=== PATIENT | female | born 1990 | race Caucasian/White ===

== ENCOUNTER 2018-09-05 23:53 | Outpatient (CLI) | payer MEDICAID | END 2018-09-05 23:54 | disposition critical access hospital (66) | LOC: EMS 23:53 | PROVIDERS: ATTEND Surgery | DX: M54.5 Low back pain (principal); R53.1 Weakness | CPT/HCPCS: A0425; A0429; A0999 ==

== ENCOUNTER 2018-09-05 23:55 | Emergency (ER) | payer MEDICAID ==
[2018-09-06] MEDS ORDERED: LORazepam 2 MG/ML VIAL ONE (00:53)
[2018-09-06 01:42] LABS: BASOPHILS # (AUTO) 0.1 10^3/uL (0.0-0.1); BASOPHILS % (AUTO) 0.9 %; EOSINOPHILS # (AUTO) 0.3 10^3/uL (0.0-0.7); EOSINOPHILS % (AUTO) 2.7 %; HGB - HEMOGLOBIN 12.4 g/dL (12.0-16.0); LYMPHOCYTES # (AUTO) 1.8 10^3/uL (1.5-3.5); LYMPHOCYTES % (AUTO) 17.8 %; MEAN CORPUSCULAR HEMOGLOBIN 26.3 pg (27.0-31.0); MEAN CORPUSCULAR HGB CONC 32.8 g/dL (32.0-36.0); MEAN CORPUSCULAR VOLUME 80.3 fL (81.0-99.0); MEAN PLATELET VOLUME 8.8 fL (7.9-10.8); MONOCYTES # (AUTO) 0.4 10^3/uL (0.0-1.0); MONOCYTES % (AUTO) 4.5 %; NEUTROPHILS # (AUTO) 7.3 10^3/uL (1.5-6.6); NEUTROPHILS % (AUTO) 74.1 %; PLT - PLATELET COUNT 208 10^3/uL (130-450); RED CELL DISTRIBUTION WIDTH 16.4 % (12.0-15.0); WHITE BLOOD COUNT 9.9 x10^3/uL (4.8-10.8)
[2018-09-06 01:50] LABS: ALBUMIN 3.6 g/dL (3.2-5.5); ALBUMIN/GLOBULIN RATIO 0.8 (1.0-2.2); BILIRUBIN,TOTAL 0.5 mg/dL (0.2-1.0); CREATININE 0.9 mg/dL (0.4-1.0); TOTAL PROTEIN 8.1 g/dL (6.7-8.2)
[2018-09-06 01:58] LABS: BILIRUBIN,URINE NEGATIVE (NEGATIVE); GLUCOSE, URINE (UA) NEGATIVE (NEGATIVE); KETONES,URINE (UA) NEGATIVE (NEGATIVE); LEUKOCYTE ESTERASE, URINE TRACE (NEGATIVE); NITRITE,URINE NEGATIVE (NEGATIVE); OCCULT BLOOD,URINE NEGATIVE (NEGATIVE); PH,URINE 5.5 PH (5.0-7.5); PROTEIN,URINE NEGATIVE (NEGATIVE); UROBILINOGEN,URINE 0.2 (NORMAL) E.U./dL (NORMAL)
[2018-09-06 01:59] LABS: CLARITY,URINE CLEAR (CLEAR)
[2018-09-06 02:04] LABS: BACTERIA,URINE Rare /HPF (None Seen); MUCUS,URINE Marked Strands; RBC,URINE None Seen /HPF (0-5); SQUAMOUS EPITHELIAL CELL,UR MANY Squamous (<= Few)
[2018-09-06] MEDS ORDERED: POTASSIUM CHLORIDE 20 MEQ TABLET PO STA (02:19)
--- NOTE | 2018-09-06 02:41 | ED Physician Documentation ---
History of Present Illness - Stated complaint Stated Complaint: GLF/ HIP PX - Chief complaint Chief Complaint: General - History obtained from History obtained from: Patient, Family, EMS - History of Present Illness Timing: Today - Additonal information Additional information: 28 y/o female with developmental delay was on her way into her cousins apartment when she went to step into the apartment she fell backward and her family was not able to help her up. She is bariatric and medics called the fire department to assist but the patient was able to get to the gurney and to stand and pivot. She is complaining of pain in her back that is similar to the pain she always has and was present today in the car on the way to the cousins. The patient and her mother and father are moving out of their home of 11 years and are having to stay with the cousin until the 09 of September. The patient herself answers "I don't know" to most questions. The cousin is able to provide further history and indicates that the patient does not usually leave the house more than once per month, does not have a primary care doctor since moving to [place] and is not on any medications. She has been to an urgent care for ear infection as the extent of her interaction with the medical community. She has chronic pain in her right side on her back and hip area. This is not different from usual according to the patient. Review of Systems Unable to obtain: Confused Constitutional: denies: Fever Eyes: denies: Decreased vision Ears: denies: Ear pain Nose: denies: Rhinorrhea / runny nose, Congestion Throat: denies: Sore throat Cardiac: denies: Chest pain / pressure, Palpitations Respiratory: denies: Dyspnea, Cough GI: reports: Vomiting (last night when she ate too much for her birthday) : denies: Dysuria, Frequency Skin: denies: Rash Musculoskeletal: reports: Back pain. denies: Neck pain, Extremity pain Neurologic: denies: Generalized weakness, Focal weakness, Numbness PD PAST MEDICAL HISTORY - Past Medical History Cardiovascular: None Respiratory: None Neuro: Headaches Endocrine/Autoimmune: None GI: GERD NATIONAL ACCOUNTS SALES: None : None HEENT: None Psych: ADD/ADHD Musculoskeletal: Chronic back pain Derm: None Other Past Medical History: learning disability; oppositional defiant disorder, borderline autism - Past Surgical History Past Surgical History: No - Present Medications Home Medications: Ambulatory Orders Medication Instructions Recorded Confirmed Acetaminophen 650 mg PO PRN 09/06/18 Ibuprofen [Ibuprofen Ib] 600 mg PO PRN 09/06/18 - Allergies Allergies/Adverse Reactions: Allergies Allergy/AdvReac Type Severity Reaction Status Date / Time erythromycin base Allergy Hives Verified 09/06/18 00:31 - Social History Does the pt smoke?: No Smoking Status: Never smoker Does the pt drink ETOH?: No Does the pt have substance abuse?: No - Immunizations Immunizations are current?: No PD ED PE NORMAL - Vitals Vital signs reviewed: Yes (normal ) - General General: No acute distress, Well developed/nourished, Other (large female with short cropped hair and missing front teeth is pleasant but not able to help much with the history. She smiles and laughs a lot. ) - HEENT HEENT: Atraumatic, PERRL, EOMI - Neck Neck: Supple, no meningeal sign, No bony TTP - Cardiac Cardiac: RRR, No murmur - Respiratory Respiratory: No respiratory distress, Clear bilaterally - Abdomen Abdomen: Normal bowel sounds, Soft, Non tender, Non distended, No organomegaly, Other (obese BMI 56.6) - Back Back: No CVA TTP, No spinal TTP, Other (There is some mild tenderness to the back at the level of the illiac crest and no tenderness over the trochanter. ) - Derm Derm: Normal color, Warm and dry, No rash - Extremities Extremities: No deformity, No edema - Neuro Neuro: talent buyer 2-12 intact, No motor deficit, No sensory deficit, Normal speech Eye Opening: Spontaneous Motor: Obeys Commands Verbal: Confused GCS Score: 14 - Psych Psych: Normal mood, Normal affect Results - Vitals Vitals: Vital Signs - 24 hr 09/05/18 09/06/18 23:57 00:13 Temperature 35.5 C L Heart Rate 90 Respiratory 18 Rate Blood Pressure 132/80 H O2 Saturation 100 Oxygen O2 Source Room air - Labs Labs: Laboratory Tests 09/06/18 09/06/18 09/06/18 01:30 01:30 01:55 WBC 9.9 RBC 4.70 Hgb 12.4 Hct 37.7 MCV 80.3 L MCH 26.3 L MCHC 32.8 RDW 16.4 H Plt Count 208 MPV 8.8 Neut # (Auto) 7.3 H Lymph # (Auto) 1.8 [place] # (Auto) 0.4 Eos # (Auto) 0.3 Baso # (Auto) 0.1 Absolute Nucleated RBC 0.00 Nucleated RBC % 0.0 Sodium 140 Potassium 3.4 L Chloride 102 Carbon Dioxide 27 Anion Gap 11.0 BUN 11 Creatinine 0.9 Estimated GFR (MDRD) 75 L Glucose 117 H Calcium 9.0 Total Bilirubin 0.5 AST 33 ALT 39 Alkaline Phosphatase 120 Total Protein 8.1 Albumin 3.6 Globulin 4.5 H Albumin/Globulin Ratio 0.8 L Lipase 41 Urine Color YELLOW Urine Clarity CLEAR Urine pH 5.5 Ur Specific [place] 1.025 Urine Protein NEGATIVE Urine Glucose (UA) NEGATIVE Urine Ketones NEGATIVE Urine Occult Blood NEGATIVE Urine Nitrite NEGATIVE Urine Bilirubin NEGATIVE Urine Urobilinogen 0.2 (NORMAL) Ur Leukocyte Esterase TRACE H Urine RBC None Seen Urine WBC 4-5 Ur Squamous Epith Cells MANY Squamous H Urine Bacteria Rare Urine Mucus Marked Strands Ur Microscopic Review INDICATED Urine Culture Comments NOT INDICATED PD MEDICAL DECISION MAKING - ED course Complexity details: considered differential, d/w patient, d/w family ED course: 28-year-old female who is normally a shot in and is having to move apparently does not want to go into the cousin's house. I am not finding that she is injured in any way today we did do some routine baseline blood work and urinalysis which were unremarkable. He she had a potassium of 3.4 and was given 20 mEq of potassium chloride. The patient's mother has had a recent mastectomy and has not as much help as she normally would be. The cousin indicates that they are working on a new residence and the patient has her mother father and aunt as well as cousin helping with this and they expect to be into a new home in less than a weeks time. Departure - Departure Disposition: 01 Home, Self Care Clinical Impression: Hypokalemia, Fall from ground level Condition: Stable Instructions: ED Potassium Deficiency, ED Mechanical Fall, ED Prevention Fall Follow-Up: [facility] [Provider Group]
[2018-09-06 02:59] VITALS: BP 149/99
== END 2018-09-06 03:08 | disposition home or self-care (01) ==
LOC: ED 23:55
DX: E87.6 Hypokalemia (principal); M54.9 Dorsalgia, unspecified; M25.551 Pain in right hip; G89.29 Other chronic pain; W18.30XA Fall on same level, unspecified, initial encounter; Y92.039 Unspecified place in apartment as the place of occurrence of the external cause; E66.9 Obesity, unspecified; Z68.43 Body mass index [BMI] 50.0-59.9, adult; F81.9 Developmental disorder of scholastic skills, unspecified
CPT/HCPCS: 36415; 80053; 81001; 83690; 85025; 99283; A9270; 81003; 87086

== ENCOUNTER 2018-10-06 16:24 | Outpatient (CLI) | payer MEDICAID | END 2018-10-06 16:45 | disposition critical access hospital (66) | LOC: EMS 16:24 | PROVIDERS: ATTEND Surgery | DX: R51 Headache (principal); W19.XXXA Unspecified fall, initial encounter; Z91.81 History of falling; Y92.038 Other place in apartment as the place of occurrence of the external cause | CPT/HCPCS: A0425; A0429; A0999 ==

== ENCOUNTER 2018-10-06 16:50 | Emergency (ER) | payer MEDICAID ==
[2018-10-06] MEDS ORDERED: BACITRACIN OINT TOP STA (16:51)
[2018-10-06 16:52] VITALS: BP 128/74
[2018-10-06] MEDS ORDERED: ACETAMINOPHEN 325 MG TABLET PO STA (16:55)
--- NOTE | 2018-10-06 16:55 | ED Physician Documentation ---
History of Present Illness - Stated complaint Stated Complaint: FALL - Chief complaint Chief Complaint: Trauma Hd/Nk - History obtained from History obtained from: Patient, Family, EMS - History of Present Illness Timing: Today Pain level max: 4 Pain level now: 3 Improved by: rest Worsened by: movement - Additonal information Additional information: 28-year-old female, developmentally delayed, was walking up the steps when she tripped and fell, struck her forehead and lip on the ground. Sustained abrasions. No loss of consciousness. No vomiting. No headache. No mouth pain. No neck or back pain. Has chronic right-sided pain that is worse with movement. Review of Systems Constitutional: denies: Fever, Chills Ears: denies: Ear pain Nose: denies: Rhinorrhea / runny nose, Congestion Throat: denies: Sore throat GI: denies: Vomiting, Diarrhea Skin: denies: Rash Musculoskeletal: denies: Neck pain, Back pain Neurologic: denies: Focal weakness, Numbness, Confused, Altered mental status, LOC PD PAST MEDICAL HISTORY - Past Medical History Cardiovascular: None Respiratory: None Neuro: Headaches Endocrine/Autoimmune: None GI: GERD SCHOOL COORDINATOR: None : None HEENT: None Psych: ADD/ADHD Musculoskeletal: Chronic back pain Derm: None - Past Surgical History Past Surgical History: No - Allergies Allergies/Adverse Reactions: Allergies Allergy/AdvReac Type Severity Reaction Status Date / Time erythromycin base Allergy Hives Verified 10/06/18 16:51 - Social History Does the pt smoke?: No Smoking Status: Never smoker Does the pt drink ETOH?: No Does the pt have substance abuse?: No - Immunizations Immunizations are current?: No PD ED PE NORMAL - Vitals Vital signs reviewed: Yes - General General: Alert and oriented X 3, No acute distress - HEENT HEENT: PERRL, EOMI, Moist mucous membranes, Other (Abrasions to the forehead, upper lip and left side of the face. No significant lacerations. No intraoral lacerations. No tongue injury. No dental injury. No bony tenderness over the face.) - Neck Neck: Supple, no meningeal sign, No bony TTP, Other (Full range of motion without pain) - Cardiac Cardiac: RRR, Strong equal pulses - Respiratory Respiratory: No respiratory distress, Clear bilaterally - Abdomen Abdomen: Soft, Non tender, Non distended - Back Back: No spinal TTP - Derm Derm: Warm and dry - Extremities Extremities: Normal ROM s pain, Other (Ambulating well in the emergency department) - Neuro Neuro: Alert and oriented X 3, No motor deficit, No sensory deficit Eye Opening: Spontaneous Motor: Obeys Commands Verbal: Oriented GCS Score: 15 - Psych Psych: Normal mood, Normal affect Results - Vitals Vitals: Vital Signs - 24 hr 10/06/18 16:49 Temperature 37.1 C Heart Rate 74 Respiratory 14 Rate Blood Pressure 128/74 O2 Saturation 100 Oxygen O2 Source Room air PD MEDICAL DECISION MAKING - ED course Complexity details: re-evaluated patient, considered differential, d/w patient, d/w family ED course: Patient with facial abrasions status post fall. No evidence of facial bone fracture that require repair. No extraocular muscle entrapment. No ocular injury. No orbital injury. No evidence of intracranial hemorrhage or skull fracture that require intervention. Will hold off on imaging at this time. Speaking freely, eating and drinking without difficulty. Wounds were cleansed and bandaged. No lacerations to repair. Patient and family counseled regarding signs and symptoms for which I believe and urgent re-evaluation would be necessary. Patient with good understanding of and agreement to plan and is comfortable going home at this time This document was made in part using voice recognition software. While efforts are made to proofread this document, sound alike and grammatical errors may occur. Departure - Departure Disposition: 01 Home, Self Care Clinical Impression: Facial abrasion Qualifiers: Encounter type: initial encounter Qualified Code(s): S00.81XA - Abrasion of other part of head, initial encounter Head injury Qualifiers: Encounter type: initial encounter Qualified Code(s): S09.90XA - Unspecified injury of head, initial encounter Condition: Good Instructions: ED Abrasion, ED Head Injury Closed Follow-Up: your,doctor in 1 week [Other] Comments: You can use Motrin or Tylenol as needed for pain. Return if you worsen. Follow-up with your doctor for further care. Keep the wounds clean. You can use antibiotic ointment at home. Discharge Date/Time: 10/06/18 18:07
== END 2018-10-06 18:07 | disposition home or self-care (01) ==
LOC: ED 16:50
DX: S00.81XA Abrasion of other part of head, initial encounter (principal); S00.511A Abrasion of lip, initial encounter; S09.90XA Unspecified injury of head, initial encounter; W10.9XXA Fall (on) (from) unspecified stairs and steps, initial encounter; Y93.01 Activity, walking, marching and hiking
CPT/HCPCS: 99282; 99283; A9270

== ENCOUNTER 2019-05-24 14:04 | Emergency (ER) | payer MEDICAID ==
[2019-05-24 14:10] VITALS: BP 140/92
== END 2019-05-24 16:30 | disposition left against medical advice (07) ==
LOC: ED 14:04
DX: Z53.21 Procedure and treatment not carried out due to patient leaving prior to being seen by health care provider (principal)

== ENCOUNTER 2021-10-02 14:32 | Inpatient (IN) | payer MEDICARE, MEDICAID ==
[2021-10-02] MEDS ORDERED: LIDOCAINE VISCOUS 2% 15 ML UDC MM STA (15:31)
[2021-10-02] MEDS ORDERED: MAG HYDROX/AL HYDROX/SIMETH 30 ML UDC PO STA (15:31)
--- NOTE | 2021-10-02 15:34 | ED Physician Documentation ---
PD HPI ABD PAIN - Stated complaint Stated Complaint: ABDOMINAL PX - Chief complaint Chief Complaint: Abd Pain - History obtained from History obtained from: Patient, Family - Additional information Additional information: 31-year-old woman with history of developmental delay Presents with her sister for evaluation of 3 days of abdominal pain. Sharp upper abdominal pain that is worse with eating. She vomited once with it. She is been constipated. They tried omeprazole but only once and ibuprofen which were ineffective. Tums does help a bit. Review of Systems Constitutional: denies: Fever, Chills Cardiac: reports: Reviewed and negative Respiratory: reports: Reviewed and negative PD PAST MEDICAL HISTORY - Past Medical History Cardiovascular: None Respiratory: None Neuro: Headaches Endocrine/Autoimmune: None GI: GERD COMMERCIAL LITIGATION [place]: None : None HEENT: None Psych: ADD/ADHD Musculoskeletal: Chronic back pain Derm: None - Past Surgical History Past Surgical History: No - Allergies Allergies/Adverse Reactions: Allergies Allergy/AdvReac Type Severity Reaction Status Date / Time erythromycin base Allergy Hives Verified 10/02/21 14:40 - Social History Does the pt smoke?: No Smoking Status: Never smoker Does the pt drink ETOH?: No Does the pt have substance abuse?: No - Immunizations Immunizations are current?: No PD ED PE NORMAL - Vitals Vital signs reviewed: Yes - General General: No acute distress, Well developed/nourished - HEENT HEENT: PERRL, EOMI - Neck Neck: Supple, no meningeal sign, No bony TTP - Cardiac Cardiac: RRR, No murmur - Respiratory Respiratory: No respiratory distress, Clear bilaterally - Abdomen Abdomen: Normal bowel sounds, Soft, Non tender - Back Back: No CVA TTP, No spinal TTP - Derm Derm: Normal color, Warm and dry - Extremities Extremities: No edema, No calf tenderness / cord - Neuro Neuro: Other (Some difficulty with question answering due to developmental delay but overall cooperative and decent historian, helped by her sister.) - Psych Psych: Normal mood, Normal affect Results - Vitals Vitals: Vital Signs - 24 hr 10/02/21 10/02/21 14:35 18:34 Temperature 37.1 C 37.0 C Heart Rate 98 103 H Respiratory 16 18 Rate Blood Pressure 137/104 H 141/83 H O2 Saturation 100 100 Oxygen O2 Source Room air - Labs Labs: Laboratory Tests 10/02/21 10/02/21 10/02/21 15:43 15:43 15:43 WBC 12.0 H RBC 4.68 Hgb 11.7 L Hct 38.9 MCV 83.1 MCH 25.0 L MCHC 30.1 L RDW 16.2 H Plt Count 220 MPV 10.3 Neut # (Auto) 9.7 H Lymph # (Auto) 1.2 L [place] # (Auto) 0.7 Eos # (Auto) 0.4 Baso # (Auto) 0.0 Absolute Nucleated RBC 0.00 Nucleated RBC % 0.0 Sodium 141 Potassium 4.1 Chloride 105 Carbon Dioxide 29 Anion Gap 7.0 BUN 10 Creatinine 0.8 Estimated GFR (MDRD) 84 L Glucose 98 Calcium 9.0 Total Bilirubin 0.8 AST 55 H ALT 87 H Alkaline Phosphatase 155 H Total Protein 7.9 Albumin 3.7 Globulin 4.2 Albumin/Globulin Ratio 0.9 L Triglycerides 98 Cholesterol 153 LDL Cholesterol, Calc 79 VLDL Cholesterol 20 HDL Cholesterol 54 L LDL/HDL Ratio 1.5 Cholesterol/HDL Ratio 2.8 Lipase 648 H Urine Color Urine Clarity Urine pH Ur Specific [place] Urine Protein Urine Glucose (UA) Urine Ketones Urine Occult Blood Urine Nitrite Urine Bilirubin Urine Urobilinogen Ur Leukocyte Esterase Ur Microscopic Review Urine Culture Comments Urine HCG, Qual SARS-CoV-2 (PCR) 10/02/21 10/02/21 15:49 19:35 WBC RBC Hgb Hct MCV MCH MCHC RDW Plt Count MPV Neut # (Auto) Lymph # (Auto) [place] # (Auto) Eos # (Auto) Baso # (Auto) Absolute Nucleated RBC Nucleated RBC % Sodium Potassium Chloride Carbon Dioxide Anion Gap BUN Creatinine Estimated GFR (MDRD) Glucose Calcium Total Bilirubin AST ALT Alkaline Phosphatase Total Protein Albumin Globulin Albumin/Globulin Ratio Triglycerides Cholesterol LDL Cholesterol, Calc VLDL Cholesterol HDL Cholesterol LDL/HDL Ratio Cholesterol/HDL Ratio Lipase Urine Color YELLOW Urine Clarity CLEAR Urine pH 6.0 Ur Specific [place] 1.010 Urine Protein NEGATIVE Urine Glucose (UA) NEGATIVE Urine Ketones NEGATIVE Urine Occult Blood NEGATIVE Urine Nitrite NEGATIVE Urine Bilirubin NEGATIVE Urine Urobilinogen 0.2 (NORMAL) Ur Leukocyte Esterase NEGATIVE Ur Microscopic Review NOT INDICATED Urine Culture Comments NOT INDICATED Urine HCG, Qual NEGATIVE SARS-CoV-2 (PCR) NOT DETECTED PD MEDICAL DECISION MAKING - ED course ED course: This is a ayanna but developmentally delayed 31-year-old woman with morbid obesity who presents with her sister for upper abdominal pain and her diagnostics demonstrate that she has pancreatitis, likely gallstone pancreatitis with a finding of gallstones and may be mild cholecystitis. currently we have no general surgeon on-call but I spoke with Dr. Greenwood who will be on-call tomorrow and he was gracious enough to phone consult and share that she could probably be admitted here for bowel rest and conservative therapy but would need to eventually be transferred for a cholecystectomy. That said in his opinion it does not need to be done during the index admission. Spoke with Dr. Louie for admission at 7:35 PM. Departure - Departure Disposition: 66 [facility] DC/Xfer Clinical Impression: Gallstone pancreatitis Condition: Stable Discharge Date/Time: 10/02/21 21:18
[2021-10-02 15:47] LABS: BASOPHILS % (AUTO) 0.3 %; EOSINOPHILS # (AUTO) 0.4 10^3/uL (0.0-0.7); EOSINOPHILS % (AUTO) 3.3 %; HCT - HEMATOCRIT 38.9 % (37.0-47.0); HGB - HEMOGLOBIN 11.7 g/dL (12.0-16.0); LYMPHOCYTES # (AUTO) 1.2 10^3/uL (1.5-3.5); MEAN CORPUSCULAR HGB CONC 30.1 g/dL (32.0-36.0); MEAN CORPUSCULAR VOLUME 83.1 fL (81.0-99.0); MEAN PLATELET VOLUME 10.3 fL (7.9-10.8); MONOCYTES # (AUTO) 0.7 10^3/uL (0.0-1.0); MONOCYTES % (AUTO) 5.8 %; NEUTROPHILS # (AUTO) 9.7 10^3/uL (1.5-6.6); NEUTROPHILS % (AUTO) 80.3 %; PLT - PLATELET COUNT 220 10^3/uL (130-450); RED BLOOD COUNT 4.68 10^6/uL (4.20-5.40); RED CELL DISTRIBUTION WIDTH 16.2 % (12.0-15.0)
[2021-10-02 16:00] LABS: BILIRUBIN,URINE NEGATIVE (NEGATIVE); GLUCOSE, URINE (UA) NEGATIVE (NEGATIVE); KETONES,URINE (UA) NEGATIVE (NEGATIVE); LEUKOCYTE ESTERASE, URINE NEGATIVE (NEGATIVE); NITRITE,URINE NEGATIVE (NEGATIVE); OCCULT BLOOD,URINE NEGATIVE (NEGATIVE); PROTEIN,URINE NEGATIVE (NEGATIVE); UROBILINOGEN,URINE 0.2 (NORMAL) E.U./dL (NORMAL)
[2021-10-02 16:02] LABS: CLARITY,URINE CLEAR (CLEAR); HCG UR QUAL NEGATIVE
[2021-10-02 16:26] LABS: ALBUMIN 3.7 g/dL (3.2-5.5); ALBUMIN/GLOBULIN RATIO 0.9 (1.0-2.2); BILIRUBIN,TOTAL 0.8 mg/dL (0.2-1.0); CREATININE 0.8 mg/dL (0.4-1.0); POTASSIUM 4.1 mmol/L (3.5-5.0); TOTAL PROTEIN 7.9 g/dL (6.7-8.2)
[2021-10-02] MEDS ORDERED: oxyCODONE 5 MG TABLET PO STA (16:33)
[2021-10-02] MEDS ORDERED: SODIUM CHLORIDE 0.9% 1,000 ML IV STA (17:24)
[2021-10-02] MEDS ORDERED: iohexoL-300 100 ML VIAL ONE (17:54)
--- NOTE | 2021-10-02 18:07 | Ultrasound Report ---
PROCEDURE: Abdomen Limited INDICATIONS: upper abd pain with pancreatitis TECHNIQUE: Real-time focused scanning was performed of the abdomen, with image documentation. COMPARISON: None. FINDINGS: Liver is normal in size. There is diffuse increased hepatic echotexture. Portal vein is pa tent with hepatopedal flow. There are shadowing gallstones. Gallbladder is contracted. There is mild gallbladder wall thickening measuring 2.7 mm. No pericholecystic fluid collection or sonographic [place] sign. Right kidney is grossly normal. IMPRESSION: 1. Cholelithiasis. Mild gallbladder wall thickening. Gallbladder is contracted. Recommend clinical co rrelation for early acute cholecystitis. 2. Liver demonstrates diffusely increased echotexture compatible with fatty infiltration. Other hepat ocellular disease could have a similar appearance. Please correlate with liver function tests. Reviewed by: Gypsy Gifford MD on 10/02/2021 6:06 PM PDT Approved by: Gypsy Gifford MD on 10/02/2021 6:06 PM PDT Station ID: [id number]
[2021-10-02 18:19] LABS: CHOL/HDL RATIO 2.8 (<4.4); CHOLESTEROL 153 mg/dL; HDL CHOLESTEROL 54 mg/dL; LDL CHOLESTEROL,CALCULATED 79 mg/dL; LDL/HDL RATIO 1.5 (<4.4); TRIGLYCERIDES 98 mg/dL; VLDL CHOLESTEROL 20 mg/dL
[2021-10-02] MEDS ORDERED: iohexoL-300 100 ML VIAL IVP ONE (19:01)
--- NOTE | 2021-10-02 19:10 | CT Report ---
PROCEDURE: CT abdomen pelvis with contrast INDICATIONS: abd pain, pancreatitis,non-dx sonno CONTRAST: IV CONTRAST: Isovue 300 ml: 100 PO CONTRAST: *NO PO CONTRAST TECHNIQUE: After the administration of contrast, 5 mm thick sections acquired from the diaphragms to the sym physis. 5 mm thick coronal and sagittal reformats were acquired. For radiation dose reduction, the following was used: automated exposure control, adjustment of mA and/or kV according to patient size . COMPARISON: None. FINDINGS: Image quality: Limited by body habitus ABDOMEN: Lung bases: Lung bases are clear. Heart size is normal. Solid organs: Liver and spleen are normal in size and enhancement. Gallbladder unremarkable Biliar y system is non dilated. Diffuse pancreatic fatty infiltration. There is mild peripancreatic edema no bo. Small perisplenic splenule present.. No adrenal nodules. Kidneys demonstrate normal size and e nhancement, without hydronephrosis. Peritoneum and bowel: Bowel loops demonstrate normal wall thickness and caliber. No free fluid or a ir. Nodes and vessels: No retroperitoneal or mesenteric adenopathy by size criteria. Aorta and inferior vena cava are normal in size. Miscellaneous: Periumbilical ventral hernia contains fat without bowel involvement PELVIS: Genitourinary: Bladder wall thickness is normal. Miscellaneous: No inguinal hernias or adenopathy. Bones: No suspicious bony lesions. No vertebral body compression fractures. Convex left thoracolum bar scoliosis IMPRESSION: 1. Study is limited by patient body habitus. There is a suggestion of mild peripancreatic inflammator y edema which could reflect mild pancreatitis. No evidence of pseudocyst, abscess or pancreatic necro sis Reviewed by: Praneeth Banuelos MD on 10/02/2021 6:08 PM [facility] Approved by: Praneeth Banuelos MD on 10/02/2021 6:08 PM AK[facility] Station ID: [id number]
[2021-10-02] MEDS ORDERED: AMPICILLIN/SULBACTAM 3 GM in SODIUM CHLORIDE 0.9% MINIBAG 100 ML IV STA (19:19)
[2021-10-02] MEDS ORDERED: LORazepam 2 MG/ML VIAL IVP STA (19:39)
[2021-10-02] MEDS ORDERED: HYDROmorphone 1 MG/ML CARPUJECT IVP STA (19:39)
[2021-10-02] MEDS ORDERED: ONDANSETRON 4 MG/2 ML VIAL IVP PRN (19:57)
[2021-10-02] MEDS ORDERED: SODIUM CHLORIDE FLUSH 0.9% 10 ML SYRINGE IVP PRN (19:57)
[2021-10-02] MEDS ORDERED: PROCHLORPERAZINE 10 MG/2 ML VIAL IVP PRN (19:57)
[2021-10-02] MEDS ORDERED: AMPICILLIN/SULBACTAM 3 GM in SODIUM CHLORIDE 0.9% MINIBAG 100 ML IV SCH (20:00)
--- NOTE | 2021-10-02 20:07 | HISTORY & PHYSICAL EXAMINATION ---
Chief Complaint - Chief Complaint Chief Complaint: Abd pain History of Present Illness - Admitted From Admitted From:: ED - History Obtained From History obtained from: ED provider - History of Present Illness HPI Comment/Other: This is a 31-year-old white female with a history of morbid obesity (BMI 58) and developmental delay. She is on no home medications. Three days ago she started to develop abdominal pain which was worse after meals. Today there was vomiting and the pain was even worse. She presented to the emergency room and sister at bedside helped give information. Work-up showed Lipase is elevated at 680. CT of the abdomen shows pancreatitis. Ultrasound of the upper abdomen shows early cholecystitis and gallstones are present. Her liver function tests are elevated. The ED provider reached out to the surgeon who advised that she be admitted for bowel rest and symptom management and surgery would not be indicated during the acute phase of pancreatitis. She will need to have her gallbladder and the gallstones addressed in the near future and because of her high risk from being morbidly obese, that surgical procedure would need to be done at a facility with higher level of care, per the General Surgeon, Dr. Greenwood. The ED provider then reached out to the Hospitalist team to admit her for managing gallstone pancreatitis. History - Past Medical History Cardiovascular: reports: None Respiratory: reports: None Neuro: reports: Headaches, Other (Developmental delay) Endocrine/Autoimmune: reports: None GI: reports: GERD GAGE MAKER: reports: None : reports: None HEENT: reports: None Psych: reports: ADD/ADHD Musculoskeletal: reports: Chronic back pain Derm: reports: None - Family & Social History Family History: Mother: Alive and Well, Father: Alive and Well, Sister: Alive and Well Living arrangement: At home Living Situation: With family Social History Notes: She has never smoked and drinks no alcohol. When asked if she works or is on disability, she said she "does not know what disability means". Meds/Allgy - Allergies Allergies/Adverse Reactions: Allergies Allergy/AdvReac Type Severity Reaction Status Date / Time erythromycin base Allergy Hives Verified 10/02/21 14:40 Review of Systems - Gastrointestinal Gastrointestinal: reports: Abdominal pain, Nausea, Vomiting - All Other Systems All Other Systems: reports: Reviewed and negative (but limited by her developmental delay) Exam - Vital Signs Vital Signs: Vital Signs x48h Temp Pulse Resp BP Pulse Ox 10/02/21 18:34 37.0 C 103 H 18 141/83 H 100 10/02/21 14:35 37.1 C 98 16 137/104 H 100 - Physical Exam General Appearance: positive: No acute distress, Alert Eyes Bilateral: positive: Normal inspection, EOMI ENT: positive: ENT inspection nml, No signs of dehydration Neck: positive: Other (Morbidly obese, has 2 double chins, cannot evaluate JVP) Respiratory: positive: No respiratory distress, Breath sounds nml Cardiovascular: positive: Regular rate & rhythm, No murmur (but very distant heart sounds due to morbid obesity) Abdomen: positive: Other (Obese with a pannus, no tenderness, normal bowel sounds, cannot R/O organomegaly) Skin: positive: Warm, Dry Extremities: positive: Non-tender, Other (1+ edema) Neurologic/Psychiatric: positive: Oriented x3 (Non-focal) Conclusion/Plan - Problem List (1) Gallstone pancreatitis Conclusion/Plan: We will order bowel rest with n.p.o. except for sips and chips. Begin IV hydration. Give IV pain meds if needed and antiemetics if needed. Follow lipase daily (2) Cholecystitis Conclusion/Plan: As per imaging, she has early cholecystitis. As per usual protocol, the gallbladder and gallstones will need furthert atten tion but not during acute pancreatitis. We will start empiric Unasyn given her elevated white blood count. (3) Abnormal LFTs Conclusion/Plan: This is likely consistent with her gallstones and ascending cholangitis, but may also be from fatty liver Avoid hepatotoxins. Follow LFTs daily (4) Morbid obesity with BMI of 50.0-59.9, adult Conclusion/Plan: As per Hx Nutrition consult with her caregivers may be necessary (5) History of developmental delay Conclusion/Plan: As per Hx - Lab Results Fish Bones: 10/02/21 15:43 10/02/21 15:43 - Diagnostic Imaging Results Diagnostic Imaging Results: positive: Final report reviewed - Other Other Results/Comments: DVT prophylaxis: SCDs do not fit, Foot pumps machine is not available, will order Lovenox 60 mg dq bid (discussed with [facility]). Attestation: The patient is expected to be discharged or transferred to another facility within 96 hours: Yes.
[2021-10-02] MEDS: D5NS W/20 MEQ KCL 1,000 ML IV SCH (20:40)
[2021-10-03] MEDS: HYDROmorphone 0.5 MG/0.5 ML SYRINGE IVP PRN ×2 (00:28→04:47)
[2021-10-03] MEDS: SODIUM CHLORIDE FLUSH 0.9% 10 ML SYRINGE IVP SCH ×3 (00:29→16:10)
[2021-10-03] MEDS: AMPICILLIN/SULBACTAM 3 GM in SODIUM CHLORIDE 0.9% MINIBAG 100 ML IV SCH ×4 (02:05→20:15)
[2021-10-03 05:44] LABS: BASOPHILS % (AUTO) 0.2 %; EOSINOPHILS # (AUTO) 0.2 10^3/uL (0.0-0.7); EOSINOPHILS % (AUTO) 1.9 %; HCT - HEMATOCRIT 34.2 % (37.0-47.0); HGB - HEMOGLOBIN 10.3 g/dL (12.0-16.0); LYMPHOCYTES # (AUTO) 1.1 10^3/uL (1.5-3.5); LYMPHOCYTES % (AUTO) 8.6 %; MEAN CORPUSCULAR HEMOGLOBIN 24.6 pg (27.0-31.0); MEAN CORPUSCULAR HGB CONC 30.1 g/dL (32.0-36.0); MEAN CORPUSCULAR VOLUME 81.6 fL (81.0-99.0); MEAN PLATELET VOLUME 10.4 fL (7.9-10.8); MONOCYTES # (AUTO) 0.8 10^3/uL (0.0-1.0); MONOCYTES % (AUTO) 6.6 %; NEUTROPHILS % (AUTO) 82.3 %; PLT - PLATELET COUNT 209 10^3/uL (130-450); RED BLOOD COUNT 4.19 10^6/uL (4.20-5.40); RED CELL DISTRIBUTION WIDTH 16.1 % (12.0-15.0); WHITE BLOOD COUNT 12.2 x10^3/uL (4.8-10.8)
[2021-10-03 05:58] LABS: ALBUMIN 3.2 g/dL (3.2-5.5); ALBUMIN/GLOBULIN RATIO 0.8 (1.0-2.2); BILIRUBIN,TOTAL 0.8 mg/dL (0.2-1.0); CALCIUM 8.2 mg/dL (8.5-10.3); CREATININE 0.7 mg/dL (0.4-1.0); MAGNESIUM 1.8 mg/dL (1.7-2.8); POTASSIUM 3.7 mmol/L (3.5-5.0); TOTAL PROTEIN 7.1 g/dL (6.7-8.2)
--- NOTE | 2021-10-03 08:27 | PROVIDER PROGRESS NOTE ---
Assessment/Plan - Problem List (1) Gallstone pancreatitis Assessment/Plan: CT suggested mild peripancreatic inflammatory edema. There was no evidence of pseudocyst, abscess or pancreatic necrosis. Biliary system is not dilated. Patient was made n.p.o. Initial lipase was 648. Lipase today is 266. She was placed on a clear liquid diet this morning. Subsequently need low fat diet (2) Cholecystitis Assessment/Plan: Abdominal ultrasound showed cholelithiasis. Mild gallbladder wall thickening. White blood cell count was 12. Patient was placed on Unasyn. Current focus is on treating pancreatitis.. Conservative management to allow inflammation around the pancreas to decrease. Patient would need to follow-up with general surgery in the outpatient setting for cholecystectomy. A cholecystectomy would need to be done at another facility. Given patient's body habitus it sh will needed higher level of care (3) Abnormal LFTs Assessment/Plan: Improving Likely 2/2 pancreatitis. AST/ALT/Alk Phos: 55/87/155>>32/62/129 (4) Morbid obesity with BMI of 50.0-59.9, adult Assessment/Plan: Advise diet and excercise - Current Meds Current Meds: Current Medications Generic Name Dose Route Start Last Admin Trade Name Freq PRN Reason Stop Dose Admin Hydromorphone HCl 0.5 mg 10/02/21 19:57 10/03/21 04:47 Hydromorphone 0.5 Mg/0.5 Ml Syringe IVP 0.5 mg Q3H PRN Administration Pain 8 to 10 Potassium Chloride/Dextrose/Sod Cl 1,000 mls @ 100 mls/hr 10/02/21 20:00 10/03/21 02:42 D5ns W/20 Meq Kcl IV 100 mls/hr .Q10H YESENIA Infusion Ampicillin Sodium/Sulbactam 100 mls @ 200 mls/hr 10/03/21 02:00 10/03/21 02:40 Sodium 3 gm/ Sodium Chloride IV Infused Q6H YESENIA Infusion Sodium Chloride 10 ml 10/02/21 19:57 10/03/21 04:48 Sodium Chloride Flush 0.9% 10 Ml Syringe IVP 10 ml PRN PRN Administration NEEDED PER PROVIDER ORDERS Sodium Chloride 10 ml 10/03/21 01:00 10/03/21 00:29 Sodium Chloride Flush 0.9% 10 Ml Syringe IVP 10 ml 0100,[id number],1700 [facility] Administration - Lab Result Fish Bone Diagrams: 10/03/21 04:55 10/03/21 04:55 Subjective - Subjective Patient Reports: Other (Patient was resting comfortably in bed. She denied abdominal pain, nausea or vomiting. She expresses that she is very hungry and wishes to be on the diet.) Objective Vital Signs: Vital Signs - 24 hr 10/02/21 10/02/21 10/02/21 14:35 18:34 20:40 Temperature 37.1 C 37.0 C 36.8 C Heart Rate 98 103 H Heart Rate [ 101 H Brachial] Respiratory 16 18 16 Rate Blood Pressure 137/104 H 141/83 H Blood Pressure 107/68 [Right Brachial artery] O2 Saturation 100 100 97 10/03/21 10/03/21 10/03/21 00:02 04:43 07:23 Temperature 36.8 C 37.3 C 37 C Heart Rate Heart Rate [ 106 H 107 H 98 Brachial] Respiratory 16 18 18 Rate Blood Pressure Blood Pressure 113/75 107/61 112/62 [Right Brachial artery] O2 Saturation 98 92 93 Oxygen O2 Source Room air I&O (Last 24 Hrs): Intake and Output Totals x24h 10/01/21 10/02/21 10/03/21 23:59 23:59 23:59 Intake Total 537 645 Balance 537 645 General: Alert, Oriented x3, No acute distress HEENT: PERRLA, EOMI Neck: Supple, No JVD Neuro: Alert, Oriented Times 3 Cardiovascular: Regular rate, Normal S1, Normal S2 Respiratory: Chest non-tender, No respiratory distress, Breath sounds nml Abdomen: Normal bowel sounds, Soft, No tenderness, No masses Extremities: No clubbing, No cyanosis, No edema, No tenderness/swelling Skin: No rashes, No breakdown, No significant lesion - Results Results: Laboratory Results WBC 12.2 x10^3/uL (4.8-10.8) H 10/03/21 04:55 RBC 4.19 10^6/uL (4.20-5.40) L 10/03/21 04:55 Hgb 10.3 g/dL (12.0-16.0) L 10/03/21 04:55 Hct 34.2 % (37.0-47.0) L 10/03/21 04:55 MCV 81.6 fL (81.0-99.0) 10/03/21 04:55 MCH 24.6 pg (27.0-31.0) L 10/03/21 04:55 MCHC 30.1 g/dL (32.0-36.0) L 10/03/21 04:55 RDW 16.1 % (12.0-15.0) H 10/03/21 04:55 Plt Count 209 10^3/uL (130-450) 10/03/21 04:55 MPV 10.4 fL (7.9-10.8) 10/03/21 04:55 Neut # (Auto) 10.0 10^3/uL (1.5-6.6) H 10/03/21 04:55 Lymph # (Auto) 1.1 10^3/uL (1.5-3.5) L 10/03/21 04:55 Cache # (Auto) 0.8 10^3/uL (0.0-1.0) 10/03/21 04:55 Eos # (Auto) 0.2 10^3/uL (0.0-0.7) 10/03/21 04:55 Baso # (Auto) 0.0 10^3/uL (0.0-0.1) 10/03/21 04:55 Absolute Nucleated RBC 0.00 x10^3/uL 10/03/21 04:55 Nucleated RBC % 0.0 /100WBC 10/03/21 04:55 Sodium 135 mmol/L (135-145) 10/03/21 04:55 Potassium 3.7 mmol/L (3.5-5.0) 10/03/21 04:55 Chloride 102 mmol/L (101-111) 10/03/21 04:55 Carbon Dioxide 27 mmol/L (21-32) 10/03/21 04:55 Anion Gap 6.0 (6-13) 10/03/21 04:55 BUN 8 mg/dL (6-20) 10/03/21 04:55 Creatinine 0.7 mg/dL (0.4-1.0) 10/03/21 04:55 Estimated GFR (MDRD) 98 (>89) 10/03/21 04:55 Glucose 106 mg/dL (70-100) H 10/03/21 04:55 Calcium 8.2 mg/dL (8.5-10.3) L 10/03/21 04:55 Magnesium 1.8 mg/dL (1.7-2.8) 10/03/21 04:55 Total Bilirubin 0.8 mg/dL (0.2-1.0) 10/03/21 04:55 AST 32 IU/L (10-42) 10/03/21 04:55 ALT 62 IU/L (10-60) H 10/03/21 04:55 Alkaline Phosphatase 129 IU/L (42-121) H 10/03/21 04:55 Total Protein 7.1 g/dL (6.7-8.2) 10/03/21 04:55 Albumin 3.2 g/dL (3.2-5.5) 10/03/21 04:55 Globulin 3.9 g/dL (2.1-4.2) 10/03/21 04:55 Albumin/Globulin Ratio 0.8 (1.0-2.2) L 10/03/21 04:55 Triglycerides 98 mg/dL (-149) 10/02/21 15:43 Cholesterol 153 mg/dL (-199) 10/02/21 15:43 LDL Cholesterol, Calc 79 mg/dL (-129) 10/02/21 15:43 VLDL Cholesterol 20 mg/dL 10/02/21 15:43 HDL Cholesterol 54 mg/dL (60-) L 10/02/21 15:43 LDL/HDL Ratio 1.5 (<4.4) 10/02/21 15:43 Cholesterol/HDL Ratio 2.8 (<4.4) 10/02/21 15:43 Lipase 266 U/L (22-51) H 10/03/21 04:55 Urine Color YELLOW 10/02/21 15:49 Urine Clarity CLEAR (CLEAR) 10/02/21 15:49 Urine pH 6.0 PH (5.0-7.5) 10/02/21 15:49 Ur Specific [place] 1.010 (1.002-1.030) 10/02/21 15:49 Urine Protein NEGATIVE mg/dL (NEGATIVE) 10/02/21 15:49 Urine Glucose (UA) NEGATIVE mg/dL (NEGATIVE) 10/02/21 15:49 Urine Ketones NEGATIVE mg/dL (NEGATIVE) 10/02/21 15:49 Urine Occult Blood NEGATIVE (NEGATIVE) 10/02/21 15:49 Urine Nitrite NEGATIVE (NEGATIVE) 10/02/21 15:49 Urine Bilirubin NEGATIVE (NEGATIVE) 10/02/21 15:49 Urine Urobilinogen 0.2 (NORMAL) E.U./dL (NORMAL) 10/02/21 15:49 Ur Leukocyte Esterase NEGATIVE (NEGATIVE) 10/02/21 15:49 Ur Microscopic Review NOT INDICATED 10/02/21 15:49 Urine Culture Comments NOT INDICATED 10/02/21 15:49 Urine HCG, Qual NEGATIVE 10/02/21 15:49 SARS-CoV-2 (PCR) NOT DETECTED 10/02/21 19:35 ABX Reporting Has patient been on IV antibiotics over the past 48 hours?: Yes
[2021-10-03] MEDS: ENOXAPARIN 60 MG/0.6 ML SYRINGE SUBQ SCH ×2 (08:36→21:35)
[2021-10-03] MEDS: D5NS W/20 MEQ KCL 1,000 ML IV SCH ×2 (08:43→21:32)
--- NOTE | 2021-10-03 10:27 | PHARMACY PROGRESS NOTE ---
- Best Possible Medication History Admit Date and Time: 10/02/211956 Processed by: Pharmacy Medication History completed: Yes Patient Interview: Completed (PT NOT ON HOME MEDS) As the person ultimately responsible for medication therapy, providers are able to order a medication from an existing home medication list in [facility] via the "Reconcile Routine" prior to Confirmation of that medication by field technical support consultant. Such practice is discouraged except when the physician, in their clinical judgment, deems that a medical need exists for a medication without regard to previous use.
[2021-10-03] MEDS ORDERED: LORazepam 0.5 MG TABLET PO PRN (13:08)
[2021-10-03] MEDS ORDERED: LORazepam 2 MG/ML VIAL IVP STA (15:54)
[2021-10-04] MEDS: SODIUM CHLORIDE FLUSH 0.9% 10 ML SYRINGE IVP SCH ×2 (00:11→07:50)
[2021-10-04] MEDS: HYDROmorphone 0.5 MG/0.5 ML SYRINGE IVP PRN (00:55)
[2021-10-04] MEDS: D5NS W/20 MEQ KCL 1,000 ML IV SCH (02:44)
[2021-10-04] MEDS: AMPICILLIN/SULBACTAM 3 GM in SODIUM CHLORIDE 0.9% MINIBAG 100 ML IV SCH ×2 (02:44→07:50)
[2021-10-04 06:11] LABS: BASOPHILS % (AUTO) 0.4 %; EOSINOPHILS # (AUTO) 0.4 10^3/uL (0.0-0.7); EOSINOPHILS % (AUTO) 4.6 %; HCT - HEMATOCRIT 30.7 % (37.0-47.0); HGB - HEMOGLOBIN 9.1 g/dL (12.0-16.0); LYMPHOCYTES # (AUTO) 1.1 10^3/uL (1.5-3.5); MEAN CORPUSCULAR HEMOGLOBIN 24.7 pg (27.0-31.0); MEAN CORPUSCULAR HGB CONC 29.6 g/dL (32.0-36.0); MEAN CORPUSCULAR VOLUME 83.4 fL (81.0-99.0); MEAN PLATELET VOLUME 10.7 fL (7.9-10.8); MONOCYTES # (AUTO) 0.5 10^3/uL (0.0-1.0); NEUTROPHILS # (AUTO) 5.7 10^3/uL (1.5-6.6); NEUTROPHILS % (AUTO) 73.6 %; PLT - PLATELET COUNT 167 10^3/uL (130-450); RED BLOOD COUNT 3.68 10^6/uL (4.20-5.40); RED CELL DISTRIBUTION WIDTH 16.2 % (12.0-15.0); WHITE BLOOD COUNT 7.7 x10^3/uL (4.8-10.8)
[2021-10-04 06:17] LABS: ALBUMIN 2.9 g/dL (3.2-5.5); ALBUMIN/GLOBULIN RATIO 0.8 (1.0-2.2); BILIRUBIN,TOTAL 0.5 mg/dL (0.2-1.0); CALCIUM 8.3 mg/dL (8.5-10.3); CREATININE 0.7 mg/dL (0.4-1.0); TOTAL PROTEIN 6.5 g/dL (6.7-8.2)
[2021-10-04] MEDS: ENOXAPARIN 60 MG/0.6 ML SYRINGE SUBQ SCH (07:50)
[2021-10-04 11:30] VITALS: BP 113/69
--- NOTE | 2021-10-04 13:17 | DISCHARGE SUMMARY ---
Discharge Summary Admit Date: 10/02/20 Discharge Date: 10/04/21 Discharging Provider: Alexis Ortegahotmargareth Code Status: Attempt Resuscitation Condition at Discharge: Stable Discharge Disposition: 01 Home, Self Care - DIAGNOSES Admission Diagnoses: Gallstone pancreatitis Cholecystitis At normal LFTs Morbid obesity with BMI of 50-59.9 adult History of developmental delay. Discharge Diagnoses with Status of Each Condition: Gallstone pancreatitis: Acute. Improving/Resolving Cholecystitis: Need to follow up with general surgery for elective cholecystectomy in the future At normal LFTs: Improved/ Resolving Morbid obesity with BMI of 50-59.9 adult: Diet and exercise History of developmental delay - HPI History of Present Illness: This is a 31-year-old white female with a history of morbid obesity (BMI 58) and developmental delay. She is on no home medications. Three days ago she started to develop abdominal pain which was worse after meals. Today there was vomiting and the pain was even worse. She presented to the emergency room and sister at bedside helped give information. Work-up showed Lipase is elevated at 680. CT of the abdomen shows pancreatitis. Ultrasound of the upper abdomen shows early cholecystitis and gallstones are present. Her liver function tests are elevated. The ED provider reached out to the surgeon who advised that she be admitted for bowel rest and symptom management and surgery would not be indicated during the acute phase of pancreatitis. She will need to have her gallbladder and the gallstones addressed in the near future and because of her high risk from being morbidly obese, that surgical procedure would need to be done at a facility with higher level of care, per the General Surgeon, Dr. Greenwood. The ED provider then reached out to the Hospitalist team to admit her for managing gallstone pancreatitis. - HOSPITAL COURSE Hospital Course: Patient is a 31-year-old female who was admitted on 10/02/2021 with abdominal mahesh n. Work-up in the ED included a CT of the abdomen pelvis which showed pancreatitis. She also had an ultrasound of the abdomen which showed early cholecystitis and gallstones. It is thought her pancreatitis is due to gallstones. She was initially made n.p.o. and treated with pain meds while receiving IV hydration. Initial lipase was 600. This improved to 100 by the time of discharge. Her diet was advanced to a clear liquid diet which she tolerated well. However the patient was insistent on going home. Consequently her sister/caregiver who was at bedside stated that they would like to advance her diet as tolerated on their own at home. Consequently they are being discharged. They were advised to maintain a low-fat diet. The patient would need an outpatient referral for follow-up weight general surgery for a possible cholecystectomy in the future. She may also follow-up with her primary care physician as needed. She was discharged in stable condition. - ALLERGIES Allergies/Adverse Reactions: Allergies Allergy/AdvReac Type Severity Reaction Status Date / Time erythromycin base Allergy Hives Verified 10/02/21 14:40 - PHYSICAL EXAM AT DISCHARGE General Appearance: positive: No acute distress, Alert Eyes Bilateral: positive: PERRL, EOMI ENT: positive: No signs of dehydration Neck: positive: No JVD, Trachea midline Respiratory: positive: Chest non-tender, No respiratory distress, Breath sounds nml. negative: Wheezes, Rales, Rhonchi Cardiovascular: positive: Regular rate & rhythm Abdomen: positive: Non-tender, Nml bowel sounds, No distention. negative: Guarding, Rebound Back: positive: Nml inspection Skin: positive: Color nml, No rash, Warm, Dry Extremities: positive: Non-tender, Full ROM, Nml appearance, No pedal edema - LABS Result Diagrams: 10/04/21 05:33 10/04/21 05:33 - TIME SPENT Time Spent in Discharge (Minutes): 20
--- NOTE | 2021-10-04 13:26 | Discharge Plan ---
Discharge Plan Problem Reviewed?: Yes Disposition: Home, Self Care Condition: Stable Diet: Soft (Low fat diet) Activity Restrictions: Activity as Tolerated Weight Bearing: Full Weight Health Concerns: Patient is a 31-year-old female who was admitted on 10/02/2021 with abdominal pain. Work-up in the ED included a CT of the abdomen pelvis which showed pancreatitis. She also had an ultrasound of the abdomen which showed early cholecystitis and gallstones. It is thought her pancreatitis is due to gallstones. She was initially made n.p.o. and treated with pain meds while receiving IV hydration. Initial lipase was 600. This improved to 100 by the time of discharge. Her diet was advanced to a clear liquid diet which she tolerated well. However the patient was insistent on going home. Consequently her sister/caregiver who was at bedside stated that they would like to advance her diet as tolerated on their own at home. Consequently they are being discharged. They were advised to maintain a low-fat diet. The patient would need an outpatient referral for follow-up weight general surgery for a possible cholecystectomy in the future. She may also follow-up with her primary care physician as needed. She was discharged in stable condition. No Smoking: If you smoke, Please STOP! Call for help.
== END 2021-10-04 13:51 | disposition home or self-care (01) | DRG 439 ==
LOC: ED 14:32 → MS2 19:57
PROVIDERS: ADMIT Internal Medicine; ATTEND Internal Medicine
DX: K85.10 Biliary acute pancreatitis without necrosis or infection (principal); K80.10 Calculus of gallbladder with chronic cholecystitis without obstruction; Z68.43 Body mass index [BMI] 50.0-59.9, adult; Z20.822 Contact with and (suspected) exposure to COVID-19; Z32.02 Encounter for pregnancy test, result negative; E66.01 Morbid (severe) obesity due to excess calories; R62.50 Unspecified lack of expected normal physiological development in childhood; K21.9 Gastro-esophageal reflux disease without esophagitis; G89.29 Other chronic pain; M54.9 Dorsalgia, unspecified; F90.9 Attention-deficit hyperactivity disorder, unspecified type; R79.89 Other specified abnormal findings of blood chemistry
CPT/HCPCS: 36415; 74177; 76705; 80053; 80061; 81003; 81025; 83690; 83735; 85025; 87635; 96374; 96375; 99284; 99285; A9270; J1170; J1650; J2060; Q9967; 81001; 83721; 87086

== ENCOUNTER 2022-03-13 15:08 | Emergency (ER) | payer MEDICARE, MEDICAID ==
[2022-03-13 15:18] VITALS: BP 140/94
[2022-03-13] MEDS ORDERED: ACETAMINOPHEN 325 MG TABLET PO STA (16:28)
== END 2022-03-13 18:16 | disposition left against medical advice (07) ==
LOC: ED 15:08
DX: Z53.21 Procedure and treatment not carried out due to patient leaving prior to being seen by health care provider (principal)